=== PATIENT | male | born 1960 | race Caucasian/White ===

== ENCOUNTER → 2023-08-14 14:10 | Outpatient (CLI) | payer OTHER, SELFPAY ==
--- NOTE | 2023-08-14 14:16 | DI.RAD.S_ITS ---
PROCEDURE: XR SHOULDER LT MIN 2V INDICATIONS: SHOULDER PAIN TECHNIQUE: 3 views of the shoulder were acquired. COMPARISON: [facility], CR, XR SHOULDER RT MIN 2V, 08/14/2023, 14:24. FINDINGS: Bones: No fractures or dislocations. Moderate glenohumeral and mild acromioclavicular joint space narrowing and juxta-articular osteophytosis. There is subchondral sclerosis and cysts at the glenoid articular surface. No suspicious bony lesions. Visualized ribs appear intact. Soft tissues: No suspicious soft tissue calcifications. Visualized lungs are clear. IMPRESSION: 1. No acute bony abnormality. If clinical symptoms persist, consider repeat radiograph in 10-14 days versus cross-sectional imaging. 2. Moderate to severe glenohumeral and mild acromioclavicular joint osteoarthritis. Dictated by: Elizabeth Vazquez M.D. on 08/14/2023 at 17:01 Approved by: Elizabeth Vazuqez M.D. on 08/14/2023 at 17:03
--- NOTE | 2023-08-14 14:16 | DI.RAD.S_ITS ---
PROCEDURE: XR SHOULDER RT MIN 2V INDICATIONS: SHOULDER PAIN TECHNIQUE: 3 views of the shoulder were acquired. COMPARISON: [facility], CR, XR SHOULDER LT MIN 2V, 08/14/2023, 14:24. FINDINGS: Bones: No fractures or dislocations. Mixed lytic and sclerotic lesion in the scapula measuring 2.1 cm adjacent to the glenoid articular surface. Marked glenohumeral and moderate acromioclavicular joint space narrowing and juxta-articular osteophytosis. There is a bulky inferior osteophyte arising from the humeral head. Visualized ribs appear intact. Soft tissues: No suspicious soft tissue calcifications. IMPRESSION: 1. No acute bony abnormality. 2. Marked glenohumeral and moderate acromioclavicular joint osteoarthritis. 3. Mixed lytic and sclerotic lesion in the scapula measuring 2.1 cm adjacent to the glenoid articular surface which is indeterminate. Consider a bone scan or MRI for further evaluation. Dictated by: Elizabeth Vazquez M.D. on 08/14/2023 at 16:59 Approved by: Elizabeth Vazquez M.D. on 08/14/2023 at 17:01
== END ==
PROVIDERS: PCP Internal Medicine; Referring Provider Internal Medicine; Visit Provider Internal Medicine
DX: M19.012 Primary osteoarthritis, left shoulder (principal); M19.011 Primary osteoarthritis, right shoulder; M89.9 Disorder of bone, unspecified
CPT/HCPCS: 73030

== ENCOUNTER → 2023-08-28 09:15 | Outpatient (CLI) | payer OTHER, SELFPAY ==
--- NOTE | 2023-08-28 09:16 | DI.MRI.S_ITS ---
PROCEDURE: MR SHOULDER RT WO/W CON INDICATIONS: BONE LESION TECHNIQUE: Noncontrast oblique coronal T1 spin echo and T2 fast spin echo with fat saturation, oblique sagittal T1 spin echo and T2 fast spin echo with fat saturation, axial T1 spin echo and T2 fast spin echo with fat saturation through the shoulder. Post-contrast oblique coronal, oblique sagittal, and axial T1 spin echo with fat saturation through the shoulder. COMPARISON: [facility], CR, XR SHOULDER RT MIN 2V, 08/14/2023, 14:24. [facility], CR, XR SHOULDER LT MIN 2V, 08/14/2023, 14:24. FINDINGS: Image quality: Excellent. Rotator cuff: There is full-thickness rupture involving mid to posterior fibers of distal supraspinatus at its insertion on the humeral head with up to 2.5 cm medial retraction of torn tendon fibers and a fluid-filled gap measures 1.5 cm in AP dimension. Low-grade articular surface partial-thickness tear involving anterior fibers of distal supraspinatus and distal infraspinatus at their insertions on humeral head is seen. Low-grade intrasubstance partial-thickness tear involving distal subscapularis is also seen. Sagittal images demonstrate mild supraspinatus muscle atrophy. Bones and bursae: Moderate acromioclavicular joint osteoarthritic changes are seen. Moderate to severe glenohumeral joint osteoarthritic changes also noted. No acute fracture or dislocation. No suspicious intraosseous lesion. Nonspecific subcortical cystic changes involving lateral aspect of humeral head near rotator cuff tendon insertion are seen. There is moderate joint effusion and subacromial subdeltoid bursal fluid. There is suggestion of ill-defined loose body within subcoracoid bursa and measures 9 mm in size. Capsule and soft tissues: No suspicious soft tissue enhancement. Global signal abnormality throughout labrum is seen suggestive of extensive labral tear. The long head of the biceps tendon demonstrates normal location and morphology. The rotator interval appears normal, without fibrosis. The coracohumeral ligament is normal in thickness. IMPRESSION: 1. No suspicious intraosseous lesion or abnormal intraosseous enhancement. Moderate to severe glenohumeral joint osteoarthritis and moderate acromioclavicular joint osteoarthritis. No acute fracture or dislocation. 2. Moderate to large joint effusion and subacromial subdeltoid bursal fluid as well as moderate subcoracoid bursal fluid. 9 mm loose body in subcoracoid bursa likely accounts for radiograph finding. 3. No enhancing soft tissue mass is seen. 4. Full-thickness rupture involving mid to posterior fibers of distal supraspinatus at its insertion on the humeral head with up to 2.5 cm medial retraction of torn tendon fibers and a fluid-filled gap measures 1.5 cm in AP dimension. Low-grade articular surface partial-thickness tear in rest of the supraspinatus and distal infraspinatus is seen. Low-grade intrasubstance partial-thickness tear involving distal subscapularis is also noted. Mild supraspinatus muscle atrophy. 5. Global signal abnormality throughout labrum suggestive of extensive labral tear. Dictated by: Brandon Hill M.D. on 08/28/2023 at 14:19 Approved by: Brandon Hill M.D. on 08/28/2023 at 14:28
== END ==
LOC: MRI 09:16
PROVIDERS: PCP Internal Medicine; Referring Provider Internal Medicine; Visit Provider Internal Medicine
DX: M75.121 Complete rotator cuff tear or rupture of right shoulder, not specified as traumatic (principal); M19.011 Primary osteoarthritis, right shoulder; M25.411 Effusion, right shoulder; M24.011 Loose body in right shoulder; M89.9 Disorder of bone, unspecified
CPT/HCPCS: 73223; A9579

== ENCOUNTER → 2024-01-04 11:47 | Outpatient (CLI) | payer OTHER, SELFPAY ==
--- NOTE | 2024-01-04 11:48 | DI.MRI.S_ITS ---
PROCEDURE: MR SHOULDER LT WO CON INDICATIONS: ASSESS FOR ROTATOR CUFF TEAR TECHNIQUE: Noncontrast oblique coronal T2 fast spin echo with fat saturation, oblique sagittal T1 spin echo and T2 fast spin echo with fat saturation, axial T1 spin echo and T2 fast spin echo with fat saturation through the shoulder. COMPARISON: None. FINDINGS: Image quality: Excellent. Severe degenerative changes of the left glenohumeral joint with near bone on-on-bone configuration. Severe diffuse cartilaginous thinning of the humeral head and glenoid labrum with abnormal signal suspicious for chronic labral tear diffusely but most notably anterior-inferiorly and a chronic appearing SLAP tear. Moderate increased T2 weighted signal of the distal biceps tendon and biceps anchor likely partial, near full-thickness tear. Full-thickness tear of the distal supraspinatus tendon with abnormal thinning and increased T2 weighted signal/tendinopathy with approximately 7 mm myotendinous retraction (series 7, image 7). Abnormal increased T2 weighted signal, irregularity of the distal subscapularis tendon with distal thinning and approximately 1 cm myotendinous retraction. Mild muscular fatty atrophy of the subscapularis muscle. Mild increased T2 weighted signal, tendinopathy of the distal infraspinatus tendon. Teres minor grossly normal without muscular atrophy. Moderate to severe degenerative changes of the acromioclavicular joint with joint space narrowing, marginal osteophytes and subchondral edema. Type 2 laterally downsloping acromion. Mild glenohumeral joint effusion with 2 suspected loose bodies anteriorly. Tells muscle, subcutaneous tissues, neurovascular bundle normal. No MR evidence of acute fracture or dislocation IMPRESSION: Severe degenerativee changes of the glenohumeral and acromioclavicular joints and suspected chronic rotator cuff tears as discussed above. Other findings as above. Dictated by: Timothy Muñoz M.D. on 01/04/2024 at 20:46 Approved by: Timothy Muñoz M.D. on 01/04/2024 at 21:36
== END ==
LOC: MRI 11:48
PROVIDERS: PCP Internal Medicine; Referring Provider Internal Medicine; Visit Provider Internal Medicine
DX: M75.122 Complete rotator cuff tear or rupture of left shoulder, not specified as traumatic (principal); S46.212A Strain of muscle, fascia and tendon of other parts of biceps, left arm, initial encounter; M25.412 Effusion, left shoulder
CPT/HCPCS: 73221

== ENCOUNTER → 2024-02-03 14:31 | Outpatient (CLI) | payer OTHER, SELFPAY ==
--- NOTE | 2024-02-03 14:52 | EKG_ITS ---
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
[2024-02-03 15:23] LABS: Add Manual Diff / Slide Review NO; Basophils Absolute Auto 100 /uL (0-100); Basophils Percent Auto 0.9 % (0-2); Eosinophils Absolute Auto 100 /uL (0-450); Eosinophils Percent Auto 2.3 % (2-4); Hemoglobin 14.7 g/dL (13.5-17.5); Lymphocytes Absolute Auto 1800 /uL (1100-4500); Lymphocytes Percent Auto 29.5 % (25-40); Mean Corpuscular HGB Conc 34.1 % (30-36); Mean Corpuscular Hemoglobin 29.7 PG (26-34); Mean Corpuscular Volume 87.2 fL (80-100); Monocytes Absolute Auto 500 /uL (0-900); Monocytes Percent Auto 8.3 % (3-14); Neutrophils Absolute Auto 3600 /uL (1500-7000); Platelet Count 190 X10^3/uL (150-400); Red Blood Cell Count 4.93 X10^6/uL (4.5-5.9); Red Cell Distribution Width 15.3 % (11.6-14.8); White Blood Cell Count 6.1 X10^3/uL (4.5-11.0)
[2024-02-03 16:01] LABS: BUN Creatinine Ratio 19.5 (6-22); Blood Urea Nitrogen 15 mg/dL (9-20); Calcium 9.7 mg/dL (8.4-10.2); Carbon Dioxide 26 mmol/L (22-32); Chloride 105 mmol/L (98-107); Estimated Glomerular Filt Rate > 60 mL/min (>60); Glucose 98 mg/dL (80-110); HEMOLYSIS < 15 (0-50); Potassium 4.4 mmol/L (3.4-5.1); Sodium 138 mmol/L (137-145)
== END ==
PROVIDERS: PCP Internal Medicine; Referring Provider Orthopaedic Surgery; Visit Provider Orthopaedic Surgery
DX: Z01.818 Encounter for other preprocedural examination (principal); Z01.812 Encounter for preprocedural laboratory examination
CPT/HCPCS: 36415; 80048; 85025; 93005

== ENCOUNTER → 2024-02-13 12:21 | Outpatient (CLI) | payer OTHER, SELFPAY ==
--- NOTE | 2024-02-13 | DI.CT.S_ITS ---
PROCEDURE: CT SHOULDER LEFT WITHOUT CON INDICATIONS: Primary osteoarthritis, left shoulder TECHNIQUE: Noncontrast 0.75 mm thick sections acquired from the acromioclavicular joint to the inferior scapula, with coronal and sagittal reformatting. COMPARISON: [facility], MR, MR SHOULDER LT WO CON, 01/04/2024, 11:59. [facility], CR, XR SHOULDER LT MIN 2V, 08/14/2023, 14:24. FINDINGS: Image quality: Excellent. Bones: Severe glenohumeral joint space loss and large inferior osteophyte arising from the humeral head extending along the lower aspect of the glenoid fossa. There is flattening of the glenoid fossa and mild marginal spurring. Moderate subcortical cystic changes are present. Small osteophytes circumferentially at the anatomic neck of the humerus. No suspicious bone lesions. No visible fractures. Mild degenerative space loss and trace spurring at the acromioclavicular joint. Small hook osteophyte along the anterolateral acromion. Soft tissues: Two well corticated calcified loose bodies measuring 0.8 and 0.6 cm in the subscapularis recess. No significant glenohumeral joint effusion. Mild muscular atrophy of the subscapularis. IMPRESSION: Severe glenohumeral joint degeneration as described. Dictated by: Carleen Kessler M.D. on 02/13/2024 at 21:16 Approved by: Carleen Kessler M.D. on 02/13/2024 at 21:35
== END ==
LOC: CT 12:23
PROVIDERS: PCP Internal Medicine; Referring Provider Orthopaedic Surgery; Visit Provider Orthopaedic Surgery
DX: M19.012 Primary osteoarthritis, left shoulder (principal)
CPT/HCPCS: 73200

== ENCOUNTER → 2024-08-18 13:28 | Outpatient (CLI) | payer OTHER, SELFPAY | LOC: PHYS 13:29 | PROVIDERS: PCP Internal Medicine; Referring Provider Physician Assistant Surgical; Visit Provider Physician Assistant Surgical | DX: Z96.612 Presence of left artificial shoulder joint (principal) | CPT/HCPCS: 95886; 95910 ==